=== PATIENT | male | born 1990 | race Caucasian/White ===

== ENCOUNTER 2020-09-10 07:30 | Emergency (ER) | payer OTHER, SELFPAY ==
[~2020-09-10] VITALS: Ht 175.3 cm; Wt 95.3 kg
[~2020-09-10 07:30] MED LIST: DEPAKOTE; RESPERIDOL
[2020-09-10 07:36] VITALS: BP_SYST 159
--- NOTE | 2020-09-10 07:40 | NUR ---
ambulated to bed 5
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
--- NOTE | 2020-09-10 07:42 | NUR ---
ER Dr. Anderson at bedside examining patient.
[2020-09-10] MEDS ORDERED: DIPH-TET-PERTUS Vaccine 0.5 ML VIAL (ADACEL) I.M. ONE (07:45)
[2020-09-10] MEDS ORDERED: HYDROcodone/ACETAMIN 5-325 MG TAB (NORCO/ VICODIN) PO ONE ×2 (07:45→10:00)
[2020-09-10] MEDS ORDERED: AMOXICILLIN/CLAVULANATE POTASSIUM 875 MG TABLET PO ONE (08:00)
[2020-09-10] MEDS ORDERED: LIDOCAINE PF 1% 30ML(POUR BTL) INJ ONE (08:00)
[2020-09-10] MEDS ORDERED: LIDOCAINE MPF 2% 5mL VIAL INJ ONE (08:15)
--- NOTE | 2020-09-10 08:15 | NUR ---
Dr. Anderson at bedside performing procedure.
[2020-09-10] MEDS ORDERED: LIDOCAINE 2%, 20 ML MDV ONE (08:26)
[2020-09-10] MEDS ORDERED: AMPICILLIN SODIUM/SULBACTAM NA 3 GM VIAL IM ONE (08:45)
[2020-09-10] MEDS ORDERED: LIDOCAINE 1% 10 MG/ML, 20 ML MDV INJ ONE (09:00)
[2020-09-10 09:02] LABS: BASOPHILS # (AUTO) 0.1 K/uL (0.0-0.2); BASOPHILS % (AUTO) 0.5 % (0.0-2.0); EOSINOPHILS # (AUTO) 0.1 K/uL (0.0-0.4); EOSINOPHILS % (AUTO) 0.5 % (0.0-4.0); HEMATOCRIT 45.4 % (36-54); HEMOGLOBIN 15.4 g/dL (14.0-18.0); LYMPHOCYTES # (AUTO) 2.9 K/uL (1.0-5.5); MEAN CORPUSCULAR HEMOGLOBIN 31 pg (27-31); MEAN CORPUSCULAR HGB CONC 34 % (32-36); MEAN CORPUSCULAR VOLUME 90 fL (79.0-98.0); MONOCYTES # (AUTO) 0.8 K/uL (0.0-1.0); MONOCYTES % (AUTO) 5.8 % (1.7-9.3); NEUTROPHILS # (AUTO) 10.6 K/uL (1.8-7.7); NEUTROPHILS % (AUTO) 73.2 % (40.0-70.0); PLATELET COUNT (AUTO) 320 K/uL (130-430); RED BLOOD CELL COUNT(AUTO) 5.02 MIL/uL (4.2-6.2); RED CELL DISTRIBUTION WIDTH 13.9 % (9.0-15.0); WHITE BLOOD COUNT (AUTO) 14.5 K/uL (4.8-10.8)
[2020-09-10 09:28] LABS: PROTHROMBIN TIME 9.9 SECS (9.5-12.5)
[2020-09-10 09:51] LABS: CALCIUM 8.8 mg/dL (8.4-11.0); CREATININE 1.15 mg/dL (0.55-1.30); POTASSIUM 4.5 mmol/L (3.5-5.1)
--- NOTE | 2020-09-10 10:02 | NUR ---
Patient to be transferred to [place]. Is being transferred due to higher level of care. Receiving facility has accepting physician and available space. ER physician has signed transfer form. Patient or responsible libertarian has agreed to transfer and signed form. Patient belongings inventoried and will be sent with patient. Copy of nursing notes, lab reports, EKG, Physicians Orders and X-rays to be sent with patient. Report called to Heather at receiving facility. Receiving physician is . [facility] has been called for transfer. ETA is now.
[2020-09-10 10:13] VITALS: BP_SYST 148
== END 2020-09-10 10:13 | disposition short-term general hospital (02) ==
LOC: SED 07:30
DX: S61.204A Unspecified open wound of right ring finger without damage to nail, initial encounter (principal); Z20.828 Contact with and (suspected) exposure to other viral communicable diseases; W22.8XXA Striking against or struck by other objects, initial encounter; Y93.89 Activity, other specified; Y92.89 Other specified places as the place of occurrence of the external cause; Y99.8 Other external cause status
CPT/HCPCS: 36415; 80048; 85025; 85610-TC; 90715; 96372; 99285; J0295; J2001

== ENCOUNTER 2023-08-09 17:32 | Emergency (ER) | payer BC, OTHER ==
[~2023-08-09] VITALS: Ht 175.3 cm; Wt 90.7 kg
[2023-08-09 18:01] VITALS: BP_SYST 118; PULSE 90; RESP 16; TEMP 97.9; O2SAT 95
[2023-08-09 22:15] VITALS: TEMP 97.2
[2023-08-09] MEDS ORDERED: DEXAMETHASONE SOD PHOSPHATE 10 MG/ML VIAL PO ONE (23:00)
[2023-08-09 23:43] LABS: BASOPHILS % (AUTO) 0.2 % (0.0-2.0); EOSINOPHILS % (AUTO) 10.1 % (0.0-4.0); HEMATOCRIT 40.8 % (36-54); HEMOGLOBIN 13.2 g/dL (14.0-18.0); LYMPHOCYTES # (AUTO) 3.6 K/uL (1.0-5.5); LYMPHOCYTES % (AUTO) 35.4 % (20.5-51.5); MEAN CORPUSCULAR HEMOGLOBIN 29 pg (27-31); MEAN CORPUSCULAR HGB CONC 32 % (32-36); MEAN CORPUSCULAR VOLUME 89 fL (79.0-98.0); MONOCYTES # (AUTO) 0.9 K/uL (0.0-1.0); MONOCYTES % (AUTO) 8.7 % (1.7-9.3); NEUTROPHILS # (AUTO) 4.6 K/uL (1.8-7.7); NEUTROPHILS % (AUTO) 45.6 % (40.0-70.0); PLATELET COUNT (AUTO) 290 K/uL (130-430); RED BLOOD CELL COUNT(AUTO) 4.57 MIL/uL (4.2-6.2); RED CELL DISTRIBUTION WIDTH 14.4 % (9.0-15.0); WHITE BLOOD COUNT (AUTO) 10.1 K/uL (4.8-10.8)
[2023-08-09 23:48] LABS: ALBUMIN 3.5 g/dL (3.4-4.8); CALCIUM 8.6 mg/dL (8.4-11.0); CREATININE 1.42 mg/dL (0.55-1.30); POTASSIUM 3.8 mmol/L (3.5-5.1); TOTAL BILIRUBIN 0.2 mg/dL (0.0-1.0); TOTAL PROTEIN, SERUM 6.3 g/dL (6.4-8.3)
[2023-08-10] MEDS ORDERED: NACL 0.9% 1,000 ML IV ONE (00:15)
[2023-08-10] MEDS ORDERED: CEPH-548 PO (00:42)
[2023-08-10] MEDS ORDERED: CLIN-142 PO (00:42)
[2023-08-10 01:10] VITALS: BP_SYST 121; PULSE 71; RESP 18; O2SAT 97
== END 2023-08-10 01:10 | disposition home or self-care (01) ==
LOC: SED 17:32
DX: L03.116 Cellulitis of left lower limb (principal); R21 Rash and other nonspecific skin eruption; N17.9 Acute kidney failure, unspecified; Z79.899 Other long term (current) drug therapy
CPT/HCPCS: 99284; 93971; 80053; 85025; 36415; 96360; J1100; J7030